=== PATIENT | female | born 1965 | race Caucasian/White ===

== ENCOUNTER 2019-01-06 09:47 | Emergency (ER) | payer MEDICAID ==
[~2019-01-06] VITALS: Ht 167.6 cm; Wt 77.0 kg
[2019-01-06] MEDS ORDERED: HYDROCODONE/ACETAMINOPHEN 5/325MG TABLET PO ONE (11:00)
[2019-01-06] MEDS ORDERED: ONDANSETRON 4MG ODT PO ONE (11:00)
[2019-01-06 11:12] VITALS: BP 127/58
== END 2019-01-06 13:19 | disposition home or self-care (01) ==
LOC: ER 09:47
DX: S72.491A Other fracture of lower end of right femur, initial encounter for closed fracture (principal); F41.9 Anxiety disorder, unspecified; F32.9 Major depressive disorder, single episode, unspecified; Z96.651 Presence of right artificial knee joint; W01.0XXA Fall on same level from slipping, tripping and stumbling without subsequent striking against object, initial encounter; Y93.89 Activity, other specified; Y92.012 Bathroom of single-family (private) house as the place of occurrence of the external cause
CPT/HCPCS: 73564; 99283; L1830; Q0162